=== PATIENT | female | born 1990 | race African-American/Black ===

== ENCOUNTER 2021-12-30 20:14 | Emergency (ER) | payer MEDICARE, MEDICAID, SELFPAY ==
--- NOTE | ~2021-12-30 | XR_ITS ---
EXAMINATION: XR CHEST CLINICAL INFORMATION: Shortness of breath COMPARISON: None TECHNIQUE: Frontal view of the chest was obtained. FINDINGS: No significant abnormality is noted involving the heart, lungs, mediastinum, bony thorax or soft tissues. XR/XR chest 1V IMPRESSION: Unremarkable examination.
[2021-12-30 20:28] VITALS: BP 121/85; PULSE 65; RESP 15; TEMP 36.8; O2SAT 100; BMI 19.5
[2021-12-30 20:42] LABS: MANUAL DIFF FLAG NO
[2021-12-30 20:50] LABS: Basophils Absolute Auto 0.1 X10*3/uL (0.0-0.2); Basophils Percent Auto 0.7 % (0-2); Eosinophils Absolute Auto 0.1 X10*3/uL (0.0-0.4); Eosinophils Percent Auto 0.7 % (0-4); Hematocrit 34.5 % (37.0-47.0); Hemoglobin 11.6 g/dl (12.0-16.0); Imm Gran Abs Auto 0.02 X10*3/uL (0.00-0.03); Imm Gran Pct Auto 0.2 % (0.0-0.4); Lymphocytes Absolute Auto 3.4 X10*3/uL (1.2-4.9); Lymphocytes Percent Auto 38.3 % (20-40); Mean Corpuscular HGB Conc 33.6 g/dl (31.0-35.0); Mean Corpuscular Hemoglobin 30.8 pg (27.0-33.0); Mean Corpuscular Volume 91.5 fL (80.0-98.0); Mean Platelet Volume 10.3 fL (9.4-12.3); Monocytes Absolute Auto 0.8 X10*3/uL (0.1-1.2); Monocytes Percent Auto 8.5 % (2-11); Neutrophils Absolute Auto 4.7 x10*3/uL (2.0-8.3); Neutrophils Percent Auto 51.6 % (45-73); Platelet Count 216 X10*3/uL (160-400); Red Blood Count 3.77 X10*6/uL (4.20-5.50); Red Cell Distribution Width 13.3 % (11.0-16.0)
[2021-12-30 20:56] LABS: COVID-19 Test Negative (Negative); IDNOW Serial# 16C4AD1C
[2021-12-30 21:02] LABS: Alanine Aminotransferase 14 U/L (0-31); Albumin Level 4.4 g/dL (3.5-5.0); Alkaline Phosphatase 58 U/L (39-117); Anion Gap 17 (12-20); Aspartate Amino Transferase 21 U/L (5-31); Bilirubin Total 0.2 mg/dL (0.0-1.0); Blood Urea Nitrogen 11 mg/dL (9-16); Carbon Dioxide 22 mmol/L (22-29); Chloride 106 mmol/L (96-108); Creatinine Clr Calc Pharmacy 62.1; Estimated Glomerular Filt Rate > 60; Glucose Random 96 mg/dL (60-115); Potassium 3.4 mmol/L (3.3-5.1); Sodium 142 mmol/L (135-145); Total Protein 7.2 g/dL (6.5-8.0)
[2021-12-30 21:05] LABS: Troponin-I High Sensitivity < 3.5 ng/L (<3.5-17.0)
--- NOTE | 2021-12-30 22:10 | ECG_ITS ---
Test Reason : DYSPNEA Blood Pressure : / mmHG Vent. Rate : 052 BPM Atrial Rate : 052 BPM P-R Int : 130 ms QRS Dur : 080 ms QT Int : 420 ms P-R-T Axes : 051 038 043 degrees QTc Int : 390 ms Sinus bradycardia Otherwise normal ECG No previous ECGs available Referred By: Miquel Bermeo Electronically Signed By:JOHNATHAN FREDERICK
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
[2021-12-30 22:36] VITALS: BP 121/75; PULSE 57; RESP 20; TEMP 37.1; O2SAT 100
[2021-12-30 23:08] LABS: HCG Quantitative < 2 mIU/mL
== END 2021-12-30 23:05 | disposition home or self-care (01) ==
LOC: HO.ED 22:57
PROVIDERS: Emergency Provider Emergency Medicine
DX: R06.00 Dyspnea, unspecified (principal); R06.02 Shortness of breath; Z20.822 Contact with and (suspected) exposure to COVID-19; Z79.899 Other long term (current) drug therapy
CPT/HCPCS: 36415; 71045; 80053; 84484; 84702; 85025; 87635; 93005; 99283; 99284

== ENCOUNTER 2022-11-30 09:24 | Emergency (ER) | payer OTHER, MEDICARE, SELFPAY ==
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
--- NOTE | ~2022-11-30 | XR_ITS ---
EXAMINATION: XR ANKLE, RIGHT CLINICAL INFORMATION: Right ankle pain. COMPARISON: None available. TECHNIQUE: AP, lateral, and mortise views of the right ankle. FINDINGS: Alignment is anatomic. No displaced fracture or dislocation. Joint spaces are maintained. No focal radiographic soft tissue swelling. XR/XR ankle RT min 3V IMPRESSION: No acute abnormality.
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
[2022-11-30 09:38] VITALS: BP 110/85; BP 136/86; PULSE 60; PULSE 62; RESP 18; TEMP 36.6; O2SAT 100; O2SAT 99; BMI 18.6
[2022-11-30 09:54] LABS: MANUAL DIFF FLAG NO
[2022-11-30 10:01] LABS: Basophils Absolute Auto 0.1 X10*3/uL (0.0-0.2); Basophils Percent Auto 0.8 % (0-2); Eosinophils Absolute Auto 0.1 X10*3/uL (0.0-0.4); Eosinophils Percent Auto 1.4 % (0-4); Hematocrit 36.5 % (37.0-47.0); Imm Gran Abs Auto 0.02 X10*3/uL (0.00-0.03); Imm Gran Pct Auto 0.3 % (0.0-0.4); Lymphocytes Absolute Auto 2.7 X10*3/uL (1.2-4.9); Lymphocytes Percent Auto 34.4 % (20-40); Mean Corpuscular HGB Conc 32.9 g/dl (31.0-35.0); Mean Corpuscular Hemoglobin 31.1 pg (27.0-33.0); Mean Corpuscular Volume 94.6 fL (80.0-98.0); Monocytes Absolute Auto 0.5 X10*3/uL (0.1-1.2); Monocytes Percent Auto 6.9 % (2-11); Neutrophils Absolute Auto 4.4 x10*3/uL (2.0-8.3); Neutrophils Percent Auto 56.2 % (45-73); Platelet Count 194 X10*3/uL (160-400); Red Blood Count 3.86 X10*6/uL (4.20-5.50); Red Cell Distribution Width 13.8 % (11.0-16.0); White Blood Count 7.9 X10*3/uL (4.8-10.8)
[2022-11-30 10:24] LABS: Alanine Aminotransferase 11 U/L (0-31); Albumin Level 2.9 g/dL (3.5-5.0); Alkaline Phosphatase 42 U/L (39-117); Anion Gap 9 (12-20); Aspartate Amino Transferase 17 U/L (5-31); Bilirubin Total 0.2 mg/dL (0.0-1.0); Blood Urea Nitrogen 6 mg/dL (9-16); Calcium 6.6 mg/dL (8.4-10.2); Carbon Dioxide 16 mmol/L (22-29); Chloride 121 mmol/L (96-108); Creatinine Clr Calc Pharmacy 81.9; Estimated Glomerular Filt Rate > 60; Glucose Random 70 mg/dL (60-115); Sodium 143 mmol/L (135-145); Total Protein 4.9 g/dL (6.5-8.0)
[2022-11-30 10:29] LABS: HCG Quantitative < 2 mIU/mL
[2022-11-30 10:31] VITALS: BP 115/76; PULSE 57; RESP 18; O2SAT 100
[2022-11-30 11:15] VITALS: BP 114/72; PULSE 57; RESP 18; TEMP 36.9; O2SAT 100
[2022-11-30] MEDS: Potassium Chloride Packet 20 MEQ PACKET 40 MEQ PO (11:17)
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
[2022-11-30] MEDS: iohexoL 350 MG/ML 100 ML INFUS..BTL 85 ML IV (11:56)
[2022-11-30] MEDS: Calcium Carbonate 750 MG TAB.CHEW 1500 MG PO (12:41)
[2022-11-30] MEDS: Morphine Sulfate 4 MG/ML CARTRIDGE IVPUSH (12:41)
[2022-11-30] MEDS: Cyclobenzaprine HCl 10 MG TABLET PO (12:42)
[2022-11-30 13:54] VITALS: BP 125/79; PULSE 50; RESP 18; TEMP 36.8; O2SAT 98
[2022-11-30] MEDS: Ketorolac Tromethamine 30 MG/ML VIAL IVPUSH (15:03)
== END 2022-11-30 15:11 | disposition home or self-care (01) ==
PROVIDERS: Physician Assistant; Emergency Provider Emergency Medicine
DX: S06.0XAA Concussion with loss of consciousness status unknown, initial encounter (principal); S13.4XXA Sprain of ligaments of cervical spine, initial encounter; S00.81XA Abrasion of other part of head, initial encounter; V47.5XXA Car driver injured in collision with fixed or stationary object in traffic accident, initial encounter; M25.571 Pain in right ankle and joints of right foot; M25.511 Pain in right shoulder; E87.6 Hypokalemia; E83.51 Hypocalcemia; Y93.89 Activity, other specified; Y92.414 Local residential or business street as the place of occurrence of the external cause; Y99.9 Unspecified external cause status; Z87.820 Personal history of traumatic brain injury; Z87.891 Personal history of nicotine dependence; Z79.899 Other long term (current) drug therapy
CPT/HCPCS: 36415; 70450; 71260; 72125; 73610; 74177; 80053; 82550; 84702; 85025; 93005; 96374; 96375; 99284; J1885; J2270; Q9967

== ENCOUNTER → 2022-11-30 11:28 | Outpatient (BNV) | payer MEDICARE, SELFPAY | PROVIDERS: Emergency Provider Emergency Medicine; Visit Provider Internal Medicine Cardiovascular Disease | DX: R00.1 Bradycardia, unspecified (principal) | CPT/HCPCS: 93010 ==

== ENCOUNTER 2023-01-27 07:39 | Outpatient (AMB) | payer OTHER, SELFPAY ==
--- NOTE | 2023-01-27 07:51 | A.OFFPC_ITS ---
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 Intake Note: Pt is here today as a New Patient for her PE Allergies nitrous oxide Allergy (Verified 01/27/23 07:55) Unknown shellfish derived Allergy (Verified 01/27/23 07:55) Anaphylaxis tree nut Allergy (Verified 01/27/23 07:55) Anaphylaxis Medication List - Last Reconciled 01/27/23 by Natacha Montalvo MD No Known Home Meds Tobacco use date assessed: 01/27/23 Dental Screening Dental Screen Date: 01/27/23 Did you have a dental visit in the last 12 months?: Yes Did you have a dental problem in the last 6 months where you did not have access to dental care?: No Was dental information given to patient?: Patient has dentist HPI 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 She moved from [place] to live with her boy friend. Past medical history includes traumatic brain injury in 2016. Pt used to follow-up with Neurology at [facility] and is looking to get established locally. She has a history of chronic depression and anxiety and tried multiple medications which caused side effects. Patient would like to get established with a therapist. She denies suicidal ideation and is not interested in taking medications. [facility] Family History (Updated 01/27/23 @ 08:18 by Natacha Montalvo MD) Mother No problems noted. Father HTN (hypertension) Social History (Updated 01/27/23 @ 08:18 by Natacha Montalvo MD) Household Members Other:: lives with partner, 5 year old daughter, unemployed, smokes weed daily Housing: House Patient Tobacco Use Status: Current everyday Tobacco user Tobacco use type: Cigarette e-Cigarette/Vaping Use: Never Used service: No Current occupational status: unemployed Cognitive needs: No Hearing needs: No Vision needs: Yes Questionnaire PHQ-9 Over the last 2 weeks, how often have you been bothered by any of the following problems? 1. Little interest or pleasure in doing things: more than half the days 2. Feeling down, depressed, or hopeless: nearly every day 3. Trouble falling or staying asleep, or sleeping too much: nearly every day 4. Feeling tired or having little energy: nearly every day 5. Poor appetite or overeating: nearly every day 6. Feeling bad about yourself - or that you are a failure or have let yourself or your family down: nearly every day 7. Trouble concentrating on things, such as reading the newspaper or watching television: nearly every day 8. Moving or speaking so slowly that other people could have noticed. Or the opposite - being so fidgety or restless that you have been moving around a lot more than usual: more than half the days 9. Thoughts that you would be better off or of hurting yourself in some way: nearly every day Total score: 25 Depression Screening Interpretation: Positive Source: Developed by Drs. Hero Lino, Kristin Maxwell, Monroe Shay and colleagues, with an educational radha from [employer]. Thrive Questionnaire Date Thrive assessed: 01/27/23 I am a: Patient What is your living situation today?: I have a steady place to live Within the past 12 months, did the food you bought not last and you didn't have the money to get more?: Sometimes True Within the past 12 months, did you worry whether your food would run out before you got money to buy more?: Sometimes True Do you have trouble paying for medicines?: I choose not to answer this question Do you have trouble getting transportation to medical appointments?: I choose not to answer this question Do you have trouble paying your heating and electricity bill?: I choose not to answer this question Do you have trouble taking care of your child, family member or friend?: I choose not to answer this question Do you have trouble with day-to-day activities such as bathing, preparing meals, shopping, managing finances, etc.?: Yes Are you currently unemployed and looking for a job?: Yes Are you interested in more education?: Yes AUDIT C Alcohol Use Questionnaire (AUDIT-C) 1. How often do you have a drink containing alcohol?: Never Total Score: 0 MARITZA-7 AMB Questionnaire MARITZA-7 Date MARITZA - 7 assessed: 01/27/23 Feeling nervous, anxious, or on edge: 0 = Not at all Not being able to stop or control worryin = Not at all Worrying too much about different things: 0 = Not at all Trouble relaxin = Not at all Being so restless that it is hard to sit still: 0 = Not at all Becoming easily annoyed or irritable: 0 = Not at all Feeling afraid as if something awful might happen: 0 = Not at all Total MARITZA-7 score (0-4 normal; 5-9 mild; 10-14 moderate; 15-21 severe): 0 Source: Developed by Drs. Hero Lino, Kristin Maxwell, Monroe Shay and colleagues, with an educational radha from [employer]. Review of Systems Const All systems reviewed & are unremarkable except as noted in HPI and below Reports no additional complaints Eyes Reports no additional complaints ENT Reports no additional complaints Card Reports no additional complaints Resp Reports no additional complaints GI Reports no additional complaints Reports no additional complaints Physical exam (Primary Care) Vital Signs: Last Vital Signs Pulse 56 01/27/23 07:52 BP 100/64 01/27/23 07:52 Pulse Ox 98 01/27/23 07:52 Oxygen Delivery Method Room Air 01/27/23 07:52 BMI result Body Mass Index 19.0 Tobacco/Smoking Status: Tobacco use Status Tobacco use date assessed 01/27/23 01/27/23 07:58 Patient Tobacco Use Status Current everyday Tobacco 01/27/23 08:18 Tobacco use type Cigarette 01/27/23 08:18 e-Cigarette/Vaping Use Never Used 01/27/23 08:18 PHQ-9: PHQ-9 Score PHQ-9: Total score 25 01/27/23 08:22 Depression Screening Interpretation: Positive Thrive Assessment: Date of Thrive Assessment Date Thrive assessed 01/27/23 01/27/23 07:58 Const General: no acute distress HENMT Head: Yes normal to inspection Ears: hearing grossly normal bilaterally Face and sinus: Yes normal facial exam Mouth: Normal oral and palatal mucosa present Throat: Yes posterior oropharynx normal Eyes General: appearance normal, both eyes and all related structures Neck Neck: Yes no lymphadenopathy and Yes supple Resp Effort & Inspection: normal respiratory effort Auscultation: clear to auscultation bilaterally Cardio Rhythm: regular rhythm Heart sounds: S1 normal heart sound present and S2 normal heart sound present GI Inspection: Yes normal to inspection Palpation (GI): Soft to palpation Percussion: Yes normal to percussion Auscultation: normal bowel sounds Assessment and Plan Assessment & Plan (1) TBI (traumatic brain injury): Comment: in 2016 in coma for 2 weeks , used to see Neurology at [facility] Code(s): S06.9XAA - Unspecified intracranial injury with loss of consciousness status unknown, initial encounter Plan: Patient is looking to get established with a local neurologist (2) Normal pelvic exam: Comment: 5 years ago Code(s): Z01.419 - Encounter for gynecological examination (general) (routine) without abnormal findings Plan: Patient will schedule appointment with waistline joiner (3) H/O brain surgery: Comment: in Code(s): Z98.890 - Other specified postprocedural states (4) Anxiety and depression: Comment: tried different meds but neurologist stopped them because of side effects Code(s): F41.9 - Anxiety disorder, unspecified; F32.A - Depression, unspecified Plan: Referred to a counselor (5) Annual physical exam: Code(s): Z00.00 - Encounter for general adult medical examination without abnormal findings Plan: Well-balanced diet and regular physical activity discussed with the patient. she will return for fasting blood work Orders: Orders Comprehensive [place]. Panel Fast Today F32.A - Depression, unspecified, F41.9 - Anxiety disorder, unspecified, Z00.00 - Encounter for general adult medical examination without abnormal findings Lipid Panel Today F32.A - Depression, unspecified, F41.9 - Anxiety disorder, unspecified, Z00.00 - Encounter for general adult medical examination without abnormal findings Complete Blood Count Auto Diff Today F32.A - Depression, unspecified, F41.9 - Anxiety disorder, unspecified, Z00.00 - Encounter for general adult medical examination without abnormal findings Referrals Counseling Referral F32.A - Depression, unspecified, F41.9 - Anxiety disorder, unspecified, Z00.00 - Encounter for general adult medical examination without abnormal findings Coding Level of Care Code New Pt Prev Care 18-39yr([id number] Diagnoses TBI (traumatic brain injury) S06.9XAA Normal pelvic exam Z01.419 H/O brain surgery Z98.890 Anxiety and depression F41.9; F32.A Annual physical exam Z00.00
[2023-01-27 07:52] VITALS: BP 100/64; PULSE 56; O2SAT 98; BMI 19.0
== END 2023-01-27 10:19 | disposition home or self-care (01) ==
PROVIDERS: Visit Provider Internal Medicine
DX: Z00.00 Encounter for general adult medical examination without abnormal findings (principal); S06.9XAA Unspecified intracranial injury with loss of consciousness status unknown, initial encounter; Z98.890 Other specified postprocedural states; F41.9 Anxiety disorder, unspecified; F32.A Depression, unspecified
CPT/HCPCS: 99385; 99395

== ENCOUNTER 2023-05-06 11:04 | Outpatient (AMB) | payer OTHER, SELFPAY ==
--- NOTE | 2023-05-06 11:09 | MHC.PC.OV ---
Vital Signs 05/06/23 11:10 Height 4 ft 10 in Weight 88 lb BMI 18.4 BP 100/62 Blood Pressure Location Rt brachial Position Sitting Pulse 88 Pulse Source Pulse Oximeter Pulse Oximetry (%) 98 Oxygen Delivery Method Room Air Intake Visit Reasons: Lots of pain. 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 Accompanied by: Self / Same As Patient Allergies nitrous oxide Allergy (Verified 05/06/23 11:14) Unknown shellfish derived Allergy (Verified 05/06/23 11:14) Anaphylaxis tree nut Allergy (Verified 05/06/23 11:14) Anaphylaxis Medication List - Last Reconciled 05/06/23 by Natacha Montalvo MD No Known Home Meds Tobacco use date assessed: 05/06/23 Dental Screening Dental Screen Date: 05/06/23 Did you have a dental visit in the last 12 months?: No Did you have a dental problem in the last 6 months where you did not have access to dental care?: No Was dental information given to patient?: Yes HPI Lots of pain. Need a check up HPI Details Pt c/o feeling depressed worse for the last 2 weeks, feeling lonely and isolated. Pt's boyfriend has not been spending a lot of time with her. Pt has friends and family in [place] and is contemplating moving back. She reports decreased appetite and physical activity but denies suicidal ideation or weight loss. [facility] Family History Mother No problems noted. Father HTN (hypertension) Social History Household Members Other:: lives with partner, 5 year old daughter, unemployed, smokes weed daily Housing: House Patient Tobacco Use Status: Current everyday Tobacco user Tobacco use type: Cigarette e-Cigarette/Vaping Use: Never Used service: No Current occupational status: unemployed Cognitive needs: No Hearing needs: No Vision needs: Yes Questionnaire Thrive Questionnaire Date Thrive assessed: 01/27/23 I am a: Patient What is your living situation today?: I have a steady place to live Within the past 12 months, did the food you bought not last and you didn't have the money to get more?: Often true Within the past 12 months, did you worry whether your food would run out before you got money to buy more?: Often true Please select the resources that you would like help with: Food and Transportation AUDIT C Alcohol Use Questionnaire (AUDIT-C) 1. How often do you have a drink containing alcohol?: Never 3. How often do you have six or more drinks on one occasion?: Never Total Score: 0 MARITZA-7 AMB Questionnaire MARITZA-7 Date MARITZA - 7 assessed: 01/27/23 Feeling nervous, anxious, or on edge: 3 = Nearly every day Not being able to stop or control worryin = More than half the days Worrying too much about different things: 2 = More than half the days Trouble relaxin = More than half the days Being so restless that it is hard to sit still: 3 = Nearly every day Becoming easily annoyed or irritable: 2 = More than half the days Feeling afraid as if something awful might happen: 2 = More than half the days Total MARITZA-7 score (0-4 normal; 5-9 mild; 10-14 moderate; 15-21 severe): 16 Source: Developed by Drs. Hero Lino, Kristin Maxwell, Monroe Shay and colleagues, with an educational radha from [employer]. Review of Systems Const All systems reviewed & are unremarkable except as noted in HPI and below Reports no additional complaints Eyes Reports no additional complaints ENT Reports no additional complaints Card Reports no additional complaints Resp Reports no additional complaints GI Reports no additional complaints Reports no additional complaints Physical exam (Primary Care) Vital Signs: Last Vital Signs Pulse 88 05/06/23 11:10 BP 100/62 05/06/23 11:10 Pulse Ox 98 05/06/23 11:10 Oxygen Delivery Method Room Air 05/06/23 11:10 BMI result Body Mass Index 18.4 Tobacco/Smoking Status: Tobacco use Status Tobacco use date assessed 05/06/23 05/06/23 11:15 Patient Tobacco Use Status Current everyday Tobacco 05/06/23 11:10 Tobacco use type Cigarette 05/06/23 11:10 e-Cigarette/Vaping Use Never Used 05/06/23 11:10 Thrive Assessment: Date of Thrive Assessment Date Thrive assessed 01/27/23 05/06/23 11:10 Const General: no acute distress HENMT Face and sinus: Yes normal facial exam Neck Neck: Yes supple Resp Effort & Inspection: normal respiratory effort Auscultation: clear to auscultation bilaterally Cardio Rhythm: regular rhythm Heart sounds: S1 normal heart sound present and S2 normal heart sound present Assessment and Plan Assessment & Plan (1) Anxiety and depression: Comment: tried different meds but neurologist stopped them because of side effects Code(s): F41.9 - Anxiety disorder, unspecified; F32.A - Depression, unspecified Plan: Referred for counseling. patient declined medications Coding Level of Care Code Est Pt Level 3 (12131) Diagnoses Anxiety and depression F41.9; F32.A
[2023-05-06 11:10] VITALS: BP 100/62; PULSE 88; O2SAT 98; BMI 18.4
== END 2023-05-06 12:01 | disposition home or self-care (01) ==
PROVIDERS: Visit Provider Internal Medicine
DX: F41.9 Anxiety disorder, unspecified (principal); F32.A Depression, unspecified
CPT/HCPCS: 99213